=== PATIENT | female | born 1940 | race Caucasian/White ===

== ENCOUNTER 2016-05-16 09:24 | Emergency (ER) | payer OTHER ==
[~2016-05-16] VITALS: Ht 160 cm; Wt 62.0 kg
[~2016-05-16 09:24] MED LIST: Z.0.NO CURRENT MEDS
[2016-05-16 09:37] VITALS: BP 163/76; PULSE 89; RESP 17; TEMP 97.7; O2SAT 98
[2016-05-16] MEDS ORDERED: LOSA50TA PO (09:38)
[2016-05-16] MEDS ORDERED: SILVER SULFADIAZINE 1% CR 50 GM JAR TOPICAL ONE (10:00)
[2016-05-16] MEDS ORDERED: TETANUS/DIPHTHERIA TOXOID ADULT 0.5 ML VIAL IM ONE (10:00)
[2016-05-16] MEDS ORDERED: SILV1CRE20 TOPICAL (10:01)
[2016-05-16] MEDS ORDERED: NORC5TAB PO (10:01)
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
== END 2016-05-16 10:41 | disposition home or self-care (01) ==
LOC: PHED 09:24
DX: T24.201A Burn of second degree of unspecified site of right lower limb, except ankle and foot, initial encounter (principal); T24.102A Burn of first degree of unspecified site of left lower limb, except ankle and foot, initial encounter; T21.15XA Burn of first degree of buttock, initial encounter; T31.10 Burns involving 10-19% of body surface with 0% to 9% third degree burns; I10 Essential (primary) hypertension; Z23 Encounter for immunization
CPT/HCPCS: 16025; 90471; 90714

== ENCOUNTER 2017-03-07 10:16 | Emergency (ER) | payer OTHER ==
[~2017-03-07] VITALS: Ht 160 cm; Wt 63.2 kg
[~2017-03-07 10:16] MED LIST changes: +LOSA50TA PO; +NORC5TAB PO; +SILV1CRE20 TOPICAL; -Z.0.NO CURRENT MEDS
[2017-03-07 10:25] VITALS: BP 173/78; PULSE 100; RESP 16; TEMP 98.4; O2SAT 99
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
--- NOTE | 2017-03-07 12:05 | RADRPT ---
EXAM DATE/TIME: 03/07/2017 11:23 [facility] COMPARISON: No previous studies available for comparison. INDICATIONS : Dropped can of peas on foot 2 weeks ago, has all over foot pain MEDICAL HISTORY : None. SURGICAL HISTORY : Shoulder ENCOUNTER: Initial ACUITY: 2 weeks PAIN SCORE: 8/10 LOCATION: Bilateral chest FINDINGS: Plantar and Achilles calcaneal spurs are noted. There is no acute fracture or dislocation of the lef t foot. CONCLUSION: 1. No acute fracture or dislocation. 2. Plantar and Achilles calcaneal spurs. Devon Wade MD on March 07, 2017 at 11:55 Board Certified Radiologist. This report was verified electronically.
[2017-03-07] MEDS ORDERED: ULTR50TA5 PO ×2 (12:10→12:19)
== END 2017-03-07 13:18 | disposition home or self-care (01) ==
LOC: PHEFT 10:16
DX: S90.32XA Contusion of left foot, initial encounter (principal); I10 Essential (primary) hypertension; W22.8XXA Striking against or struck by other objects, initial encounter; Z88.6 Allergy status to analgesic agent; Z79.899 Other long term (current) drug therapy
CPT/HCPCS: 73630; 99283